=== PATIENT | female | born 1950 | race Two or more races ===

== ENCOUNTER 2023-09-08 15:45 | Inpatient (IN) | payer OTHER ==
[~2023-09-08] VITALS: Ht 157.5 cm; Wt 72.6 kg
[2023-09-08 16:14] LABS: HEMATOCRIT 34.2 % (36.0-45.00); HEMOGLOBIN 11.2 g/dL (12.0-15.00); MEAN CORPUSCULAR HEMOGLOBIN 28.5 pg (27.00-32.0); MEAN CORPUSCULAR HGB CONC 32.8 g/dl (32.0-36.0); PLATELET COUNT 391 K/uL (150-450); RED BLOOD COUNT 3.94 M/uL (4.00-6.00); RED CELL DISTRIBUTION WIDTH 14.1 % (11.5-14.5)
[2023-09-08 16:44] LABS: ALBUMIN 3.4 gm/dL (3.4-5.0); BILIRUBIN TOTAL 0.41 mg/dL (0.3-1.2); CALCIUM 8.6 mg/dL (8.5-10.1); CREATININE SERUM 0.84 mg/dL (0.55-1.02); GFR 66.1; POTASSIUM 4.19 mEq/L (3.5-5.1); TOTAL PROTEIN 7.4 gm/dL (6.4-8.2)
[2023-09-09 16:38] LABS: URINE APPEARANCE Clear; URINE BILIRRUBIN Negative (NEGATIVE); URINE BLOOD Trace; URINE COLOR Yellow; URINE GLUCOSE Negative (NEGATIVE); URINE LEUKOCYTE Small; URINE NITRATE Negative; URINE PROTEIN Negative (NEGATIVE); URINE UROBILINOGEN 0.2 E.U./dl
[2023-09-09 16:39] LABS: URINE BACTERIA 54.1 uL (0.0-1933); URINE EPITHELIAL CELLS 10.6 uL (0.0-38.8); URINE RBC 3.3 uL (0.0-20.8); URINE WBC 36.4 uL (0.0-23.2)
[2023-09-10 07:22] LABS: HEMATOCRIT 31.5 % (36.0-45.00); HEMOGLOBIN 10.5 g/dL (12.0-15.00); MEAN CELL VOLUME 86.6 fL (80.00-100.00); MEAN CORPUSCULAR HEMOGLOBIN 28.8 pg (27.00-32.0); MEAN CORPUSCULAR HGB CONC 33.3 g/dl (32.0-36.0); PLATELET COUNT 325 K/uL (150-450); RED BLOOD COUNT 3.64 M/uL (4.00-6.00); RED CELL DISTRIBUTION WIDTH 13.6 % (11.5-14.5)
[2023-09-10 08:07] LABS: ALBUMIN 2.7 gm/dL (3.4-5.0); BILIRUBIN TOTAL 0.61 mg/dL (0.3-1.2); CALCIUM 8.1 mg/dL (8.5-10.1); CREATININE SERUM 0.7 mg/dL (0.55-1.02); GFR 81.57; GLOBULINA 3.5 G/DL (2.4-3.5); MAGNESIUM 2.3 mg/dL (1.8-2.4); PHOSPHOROUS 3.1 mg/dL (2.5-4.9); POTASSIUM 4.3 mEq/L (3.5-5.1); TOTAL PROTEIN 6.2 gm/dL (6.4-8.2)
[2023-09-10 09:09] LABS: CA 125 46.5 U/mL (0.0-38.1)
[2023-09-10 18:10] LABS: CALCIUM 8.4 mg/dL (8.5-10.1); CHOL HDL RATIO 2.8 (0-5.0); CREATININE SERUM 0.61 mg/dL (0.55-1.02); GFR 95.61; POTASSIUM 4.56 mEq/L (3.5-5.1)
[2023-09-12 07:45] LABS: PH,URINE 6.5 (5.0-8.0); URINE APPEARANCE Clear; URINE BILIRRUBIN Negative (NEGATIVE); URINE BLOOD Negative; URINE COLOR Yellow; URINE GLUCOSE Negative (NEGATIVE); URINE LEUKOCYTE Trace; URINE NITRATE Negative; URINE PROTEIN Negative (NEGATIVE); URINE UROBILINOGEN 0.2 E.U./dl
[2023-09-12 07:49] LABS: URINE BACTERIA 8.8 uL (0.0-1933); URINE EPITHELIAL CELLS 5.7 uL (0.0-38.8); URINE WBC 6.9 uL (0.0-23.2)
[2023-09-12 08:07] LABS: URINE RBC 1.2 uL (0.0-20.8)
[2023-09-13 08:34] LABS: ALBUMIN 2.4 gm/dL (3.4-5.0); BILIRUBIN TOTAL 0.38 mg/dL (0.3-1.2); CALCIUM 7.8 mg/dL (8.5-10.1); CREATININE SERUM 0.53 mg/dL (0.55-1.02); GFR 112.46; GLOBULINA 3.2 G/DL (2.4-3.5); HEMATOCRIT 29.5 % (36.0-45.00); HEMOGLOBIN 10.2 g/dL (12.0-15.00); MAGNESIUM 2.1 mg/dL (1.8-2.4); MEAN CELL VOLUME 85.2 fL (80.00-100.00); MEAN CORPUSCULAR HEMOGLOBIN 29.4 pg (27.00-32.0); MEAN CORPUSCULAR HGB CONC 34.6 g/dl (32.0-36.0); PHOSPHOROUS 3.7 mg/dL (2.5-4.9); PLATELET COUNT 294 K/uL (150-450); POTASSIUM 5.2 mEq/L (3.5-5.1); RED BLOOD COUNT 3.47 M/uL (4.00-6.00); RED CELL DISTRIBUTION WIDTH 13.9 % (11.5-14.5); TOTAL PROTEIN 5.6 gm/dL (6.4-8.2)
[2023-09-15 07:36] LABS: HEMATOCRIT 31.2 % (36.0-45.00); HEMOGLOBIN 10.4 g/dL (12.0-15.00); MEAN CELL VOLUME 86.6 fL (80.00-100.00); MEAN CORPUSCULAR HEMOGLOBIN 28.9 pg (27.00-32.0); MEAN CORPUSCULAR HGB CONC 33.3 g/dl (32.0-36.0); PLATELET COUNT 289 K/uL (150-450); RED BLOOD COUNT 3.61 M/uL (4.00-6.00); RED CELL DISTRIBUTION WIDTH 13.8 % (11.5-14.5)
[2023-09-15 07:37] LABS: ALBUMIN 2.8 gm/dL (3.4-5.0); ALKALINE PHOSPHATASE 64 U/L (50-136); ALT/SGPT 50 U/L (12-78); ANION GAP 10 (10.0-20.0); AST/SGOT 44 U/L (15-37); BILIRUBIN TOTAL 0.37 mg/dL (0.3-1.2); BILIRUBIN,CONJUGATED < 0.10 mg/dL (0.0-0.2); BILIRUBIN,UNCONJUGATED 0.27 mg/dL (0.0-0.6); BLOOD UREA NITROGEN 16 mg/dL (7-18); BUN CREA RATIO 29 (7.0-25.0); CALCIUM 8.5 mg/dL (8.5-10.1); CARBON DIOXIDE 25 mEq/L (21-32); CHLORIDE 110 mmol/L (98-107); CHOL HDL RATIO 2.2 (0-5.0); CHOLESTEROL 71 mg/dL (0-200); CREATININE SERUM 0.55 mg/dL (0.55-1.02); GFR 107.75; GLOBULINA 3.4 G/DL (2.4-3.5); GLUCOSE FASTING 103 mg/dL (65-100); HDL 32 mg/dl (40-60); LDL 18 mg/dl (0-130); OSMOLALITY SERUM 281 MOSM/KG (275-295); POTASSIUM 5.32 mEq/L (3.5-5.1); SODIUM 140 mmol/L (136-145); TOTAL PROTEIN 6.2 gm/dL (6.4-8.2); TRIGLYCERIDES 103 mg/dL (0-150); VLDL 20 (0-39)
[2023-09-15 07:58] LABS: INR 1.11; PARTIAL THROMBOPLASTIN TIME 29.6 SECONDS (22.0-34.0); PROTHROMBIN TIME 11.6 SECONDS (9.0-11.5)
[2023-09-17] MEDS ORDERED: LACTULOSE10 GM/152 PO (17:13)
[2023-09-17] MEDS ORDERED: CIPRO500 MG PO (17:14)
[2023-09-17] MEDS ORDERED: METRONIDAZOLE500 MG PO (17:18)
== END 2023-09-17 18:40 | disposition home or self-care (01) | DRG 815 ==
LOC: MEDJ 15:45
PROVIDERS: Internal Medicine; Internal Medicine Infectious Disease; ADMIT Internal Medicine; ATTEND Internal Medicine
PROC: BW21YZZ Computerized Tomography (CT Scan) of Abdomen and Pelvis using Other Contrast (ICD-10-PCS; 2023-09-08)
PROC: BF37ZZZ Magnetic Resonance Imaging (MRI) of Pancreas (ICD-10-PCS; 2023-09-08)
PROC: 0W9G30Z Drainage of Peritoneal Cavity with Drainage Device, Percutaneous Approach (ICD-10-PCS; principal; 2023-09-10)
PROC: 02HV33Z Insertion of Infusion Device into Superior Vena Cava, Percutaneous Approach (ICD-10-PCS; 2023-09-11)
PROC: BW21YZZ Computerized Tomography (CT Scan) of Abdomen and Pelvis using Other Contrast (ICD-10-PCS; 2023-09-14)
DX: D73.3 Abscess of spleen (principal); K57.32 Diverticulitis of large intestine without perforation or abscess without bleeding; N39.0 Urinary tract infection, site not specified; K80.20 Calculus of gallbladder without cholecystitis without obstruction; I10 Essential (primary) hypertension; E78.5 Hyperlipidemia, unspecified
CPT/HCPCS: 240

== ENCOUNTER 2023-09-27 15:16 | Emergency (ER) | payer OTHER ==
[~2023-09-27] VITALS: Ht 154.9 cm; Wt 70.3 kg
[~2023-09-27 15:16] MED LIST: CIPRO500 MG PO; LACTULOSE10 GM/152 PO; METRONIDAZOLE500 MG PO
[2023-09-27] MEDS ORDERED: ATORVASTATIN CA20 MG PO (15:46)
[2023-09-27] MEDS ORDERED: LISINOPRIL20 MG PO (15:47)
[2023-09-27 15:51] LABS: HEMATOCRIT 36.5 % (36.0-45.00); HEMOGLOBIN 11.9 g/dL (12.0-15.00); MEAN CELL VOLUME 86.9 fL (80.00-100.00); MEAN CORPUSCULAR HEMOGLOBIN 28.4 pg (27.00-32.0); MEAN CORPUSCULAR HGB CONC 32.7 g/dl (32.0-36.0); PLATELET COUNT 399 K/uL (150-450); RED CELL DISTRIBUTION WIDTH 15.3 % (11.5-14.5)
[2023-09-27 15:52] LABS: ABG PH 7.448 (7.35-7.45); ABG PO2 84.8 mmHg (80-100); ABG pCO2 32.6 mmHg (35-45); BICARBONATE 22.1 mmol/l (23-25); SaO2 96.8 %; Tco2 23.1 mmol/l
[2023-09-27 15:53] LABS: allen test SATISFACTORY; o2 21 %; puncture site RADIAL LEFT
[2023-09-27 16:22] LABS: INR 1.02; PARTIAL THROMBOPLASTIN TIME 26.7 SECONDS (22.0-34.0); PROTHROMBIN TIME 10.7 SECONDS (9.0-11.5)
[2023-09-27 16:27] LABS: ALBUMIN 3.5 gm/dL (3.4-5.0); BILIRUBIN TOTAL 0.32 mg/dL (0.3-1.2); CALCIUM 9.1 mg/dL (8.5-10.1); CREATININE SERUM 0.93 mg/dL (0.55-1.02); GFR 58.77; GLOBULINA 4.7 G/DL (2.4-3.5); POTASSIUM 4.24 mEq/L (3.5-5.1); TOTAL PROTEIN 8.2 gm/dL (6.4-8.2)
[2023-09-27 18:04] LABS: PH,URINE 6.5 (5.0-8.0); URINE APPEARANCE Clear; URINE BILIRRUBIN Negative (NEGATIVE); URINE BLOOD Negative; URINE COLOR Yellow; URINE GLUCOSE Negative (NEGATIVE); URINE LEUKOCYTE Small; URINE NITRATE Negative; URINE PROTEIN Negative (NEGATIVE); URINE UROBILINOGEN 0.2 E.U./dl
[2023-09-27 18:09] LABS: URINE BACTERIA 31.4 uL (0.0-1933); URINE EPITHELIAL CELLS 6.1 uL (0.0-38.8); URINE WBC 32.5 uL (0.0-23.2)
[2023-09-27 18:22] LABS: URINE RBC 1.7 uL (0.0-20.8)
== END 2023-09-27 23:50 | disposition home or self-care (01) ==
LOC: ER 15:16
PROVIDERS: General Practice
DX: I49.5 Sick sinus syndrome (principal); I10 Essential (primary) hypertension; E78.00 Pure hypercholesterolemia, unspecified; R00.2 Palpitations; Z20.822 Contact with and (suspected) exposure to COVID-19
CPT/HCPCS: 36415; 71045; 82803; 93005; 96365; 96366; 99284; J7030

== ENCOUNTER 2024-05-14 05:35 | Day surgery (SDC) | payer OTHER ==
[2024-05-13 09:10] LABS: HEMATOCRIT 38.5 % (36.0-45.00); HEMOGLOBIN 13.2 g/dL (12.0-15.00); MEAN CORPUSCULAR HEMOGLOBIN 29.9 pg (27.00-32.0); MEAN CORPUSCULAR HGB CONC 34.4 g/dl (32.0-36.0); PLATELET COUNT 317 K/uL (150-450); RED BLOOD COUNT 4.42 M/uL (4.00-6.00); RED CELL DISTRIBUTION WIDTH 14.2 % (11.5-14.5)
[2024-05-13 10:00] LABS: CALCIUM 9.6 mg/dL (8.5-10.1); CREATININE SERUM 0.9 mg/dL (0.55-1.02); GFR 61.04; POTASSIUM 5.26 mEq/L (3.5-5.1)
[2024-05-13 10:09] LABS: INR < 0.93; PROTHROMBIN TIME 9.8 SECONDS (9.0-11.5)
[~2024-05-14] VITALS: Ht 157.5 cm; Wt 70.3 kg
[~2024-05-14 05:35] MED LIST changes: +ATORVASTATIN CA20 MG PO; +LISINOPRIL20 MG PO; +PROTONIX20 MG PO
[2024-05-14] MEDS ORDERED: SUGAMMADEX SODIUM 200 MG/2 ML VIAL IV ONE (09:15)
== END 2024-05-14 11:45 | disposition home or self-care (01) ==
LOC: AMB-ENDOS 05:35
PROVIDERS: ATTEND Internal Medicine Gastroenterology
DX: D37.6 Neoplasm of uncertain behavior of liver, gallbladder and bile ducts (principal); K86.1 Other chronic pancreatitis; K86.2 Cyst of pancreas; I10 Essential (primary) hypertension; K57.90 Diverticulosis of intestine, part unspecified, without perforation or abscess without bleeding; E78.5 Hyperlipidemia, unspecified

== ENCOUNTER 2024-07-10 06:55 | Inpatient (IN) | payer OTHER ==
[~2024-07-10] VITALS: Ht 154.9 cm; Wt 69.4 kg
[2024-07-10] MEDS ORDERED: NORVASC5 MG (07:08)
[2024-07-10] MEDS ORDERED: BARIUM SULFATE 450 ML ORAL.SUSP PO ONE (09:44)
[2024-07-10 09:57] LABS: HEMATOCRIT 34.8 % (36.0-45.00); HEMOGLOBIN 11.7 g/dL (12.0-15.00); MEAN CELL VOLUME 90.6 fL (80.00-100.00); MEAN CORPUSCULAR HEMOGLOBIN 30.6 pg (27.00-32.0); MEAN CORPUSCULAR HGB CONC 33.7 g/dl (32.0-36.0); PLATELET COUNT 378 K/uL (150-450); RED BLOOD COUNT 3.84 M/uL (4.00-6.00); RED CELL DISTRIBUTION WIDTH 15.5 % (11.5-14.5)
[2024-07-10 10:01] LABS: URINE APPEARANCE Clear; URINE BILIRRUBIN Moderate (NEGATIVE); URINE BLOOD Negative; URINE COLOR Dark Yellow; URINE KETONE Negative (NEGATIVE); URINE LEUKOCYTE Negative; URINE NITRATE Negative; URINE PROTEIN Negative (NEGATIVE); URINE UROBILINOGEN 0.2 E.U./dl
[2024-07-10 10:07] LABS: URINE EPITHELIAL CELLS 3.2 uL (0.0-38.8); URINE RBC 2.1 uL (0.0-20.8)
[2024-07-10 10:13] LABS: INR 1.01; PARTIAL THROMBOPLASTIN TIME 22.2 SECONDS (22.0-34.0)
[2024-07-10 10:17] LABS: URINE BACTERIA 3.7 uL (0.0-1933); URINE GLUCOSE 100 MG/DL (NEGATIVE); URINE WBC 0.9 uL (0.0-23.2)
[2024-07-10 10:26] LABS: ALBUMIN 3.5 gm/dL (3.4-5.0); CALCIUM 9.3 mg/dL (8.5-10.1); CREATININE SERUM 0.84 mg/dL (0.55-1.02); GFR 65.92; GLOBULINA 3.8 G/DL (2.4-3.5); POTASSIUM 4.3 mEq/L (3.5-5.1); TOTAL PROTEIN 7.3 gm/dL (6.4-8.2)
[2024-07-10 10:38] LABS: BILIRUBIN TOTAL 13.87 mg/dL (0.3-1.2); BILIRUBIN,CONJUGATED 10.56 mg/dL (0.0-0.2); BILIRUBIN,UNCONJUGATED 3.31 mg/dL (0.0-0.6)
[2024-07-10] MEDS ORDERED: FAMOTIDINE/PF 20 MG/2 ML VIAL ONE ×2 (16:36→16:47)
[2024-07-10] MEDS ORDERED: FAMOTIDINE/PF 20 MG/2 ML VIAL IV PUSH ONE (16:45)
[2024-07-10] MEDS ORDERED: 0.9 % SODIUM CHLORIDE 1,000 ML IV SCH (17:45)
[2024-07-10] MEDS ORDERED: FAMOTIDINE/PF 20 MG in 0.9 % SODIUM CHLORIDE 8 ML IV PUSH SCH (17:46)
[2024-07-10] MEDS ORDERED: PIPERACILLIN/TAZOBACTAM SODIUM 3.375 GM in DEXTROSE 5 % IN WATER 100 ML IV SCH (18:00)
[2024-07-10] MEDS ORDERED: ONDANSETRON HCL 4 MG in 0.9 % SODIUM CHLORIDE 50 ML IV PRN (18:00)
[2024-07-10] MEDS ORDERED: PIPERACILLIN/TAZOBACTAM SODIUM 3.375 GM VIAL IV ONE (18:11)
[2024-07-11] MEDS ORDERED: AMLODIPINE BESYLATE 5 MG TABLET PO SCH (09:00)
[2024-07-11] MEDS ORDERED: ENOXAPARIN SODIUM 40 MG/0.4 ML SYRINGE SUBCUTANEO SCH (09:00)
[2024-07-11 12:36] LABS: HEMATOCRIT 36.4 % (36.0-45.00); HEMOGLOBIN 12.2 g/dL (12.0-15.00); MEAN CELL VOLUME 90.4 fL (80.00-100.00); MEAN CORPUSCULAR HEMOGLOBIN 30.2 pg (27.00-32.0); MEAN CORPUSCULAR HGB CONC 33.4 g/dl (32.0-36.0); PLATELET COUNT 366 K/uL (150-450); RED BLOOD COUNT 4.03 M/uL (4.00-6.00); RED CELL DISTRIBUTION WIDTH 15.6 % (11.5-14.5)
[2024-07-11 13:53] LABS: ALBUMIN 2.8 gm/dL (3.4-5.0); CALCIUM 8.3 mg/dL (8.5-10.1); CREATININE SERUM 0.81 mg/dL (0.55-1.02); GFR 68.75; GLOBULINA 3.3 G/DL (2.4-3.5); MAGNESIUM 2.3 mg/dL (1.8-2.4); PHOSPHOROUS 2.7 mg/dL (2.5-4.9); POTASSIUM 4.1 mEq/L (3.5-5.1); TOTAL PROTEIN 6.1 gm/dL (6.4-8.2)
[2024-07-11 14:15] LABS: BILIRUBIN TOTAL 15.53 mg/dL (0.3-1.2)
[2024-07-12 07:54] LABS: HEMATOCRIT 32.5 % (36.0-45.00); HEMOGLOBIN 11.1 g/dL (12.0-15.00); MEAN CELL VOLUME 88.5 fL (80.00-100.00); MEAN CORPUSCULAR HEMOGLOBIN 30.2 pg (27.00-32.0); MEAN CORPUSCULAR HGB CONC 34.1 g/dl (32.0-36.0); PLATELET COUNT 338 K/uL (150-450); RED BLOOD COUNT 3.68 M/uL (4.00-6.00); RED CELL DISTRIBUTION WIDTH 16.2 % (11.5-14.5)
[2024-07-12] MEDS ORDERED: LORazepam 2 MG/ML VIAL IV ONE (08:15)
[2024-07-12] MEDS ORDERED: LORazepam 2 MG/ML VIAL ONE (08:18)
[2024-07-12 09:10] LABS: ALBUMIN 2.7 gm/dL (3.4-5.0); CALCIUM 7.7 mg/dL (8.5-10.1); CREATININE SERUM 0.8 mg/dL (0.55-1.02); GFR 69.74; GLOBULINA 3.1 G/DL (2.4-3.5); MAGNESIUM 2.1 mg/dL (1.8-2.4); PHOSPHOROUS 2.6 mg/dL (2.5-4.9); POTASSIUM 4.57 mEq/L (3.5-5.1); TOTAL PROTEIN 5.8 gm/dL (6.4-8.2)
[2024-07-12 09:38] LABS: BILIRUBIN TOTAL 17.97 mg/dL (0.3-1.2)
[2024-07-13] MEDS ORDERED: DEXTROSE 5%-WATER 100ML IV.SOLN ONE (08:16)
[2024-07-13] MEDS ORDERED: FAMOTIDINE/PF 20 MG/2 ML VIAL ONE (08:16)
[2024-07-14 06:52] LABS: ALBUMIN 2.6 gm/dL (3.4-5.0); CALCIUM 8.1 mg/dL (8.5-10.1); CREATININE SERUM 0.78 mg/dL (0.55-1.02); GFR 71.81; GLOBULINA 2.9 G/DL (2.4-3.5); MAGNESIUM 2.3 mg/dL (1.8-2.4); POTASSIUM 3.76 mEq/L (3.5-5.1); TOTAL PROTEIN 5.5 gm/dL (6.4-8.2)
[2024-07-14 07:05] LABS: HEMATOCRIT 30.2 % (36.0-45.00); HEMOGLOBIN 10.7 g/dL (12.0-15.00); MEAN CELL VOLUME 87.1 fL (80.00-100.00); MEAN CORPUSCULAR HEMOGLOBIN 30.8 pg (27.00-32.0); MEAN CORPUSCULAR HGB CONC 35.4 g/dl (32.0-36.0); PLATELET COUNT 320 K/uL (150-450); RED BLOOD COUNT 3.47 M/uL (4.00-6.00); RED CELL DISTRIBUTION WIDTH 15.8 % (11.5-14.5)
[2024-07-14 07:20] LABS: BILIRUBIN,UNCONJUGATED 5.2 mg/dL (0.0-0.6); C-REACTIVE PROTEIN 7.65 MG/DL (0.00-0.29)
[2024-07-14 07:21] LABS: BILIRUBIN,CONJUGATED 15.15 mg/dL (0.0-0.2)
[2024-07-14 07:37] LABS: PHOSPHOROUS 1.9 mg/dL (2.5-4.9)
[2024-07-14 07:38] LABS: BILIRUBIN TOTAL 20.35 mg/dL (0.3-1.2)
[2024-07-14] MEDS ORDERED: FAMOTIDINE/PF 20 MG/2 ML VIAL ONE (09:00)
[2024-07-14] MEDS ORDERED: LISINOPRIL 20 MG TABLET PO SCH (09:00)
[2024-07-14 09:11] LABS: CA 19-9 137 U/mL (0-35)
[2024-07-14] MEDS ORDERED: POTASSIUM PHOS,M-BASIC-D-BASIC 18 MM in 0.9 % SODIUM CHLORIDE 250 ML IV NR (14:30)
[2024-07-15] MEDS ORDERED: FAMOTIDINE/PF 20 MG/2 ML VIAL ONE (08:21)
[2024-07-15] MEDS ORDERED: IOVERSOL 320 MG/ML - 50 ML VIAL IV SCH (12:45)
[2024-07-15] MEDS ORDERED: GLUCAGON 1 MG VIAL IV NR (13:15)
[2024-07-15] MEDS ORDERED: SUGAMMADEX SODIUM 200 MG/2 ML VIAL IV SCH (14:00)
[2024-07-16 12:06] LABS: igg 825 mg/dL (586-1602); igg 1 364 mg/dL (248-810); igg 2 233 mg/dL (130-555); igg 3 36 mg/dL (15-102); igg 4 47 mg/dL (2-96)
[2024-07-17 06:34] LABS: HEMATOCRIT 29.6 % (36.0-45.00); HEMOGLOBIN 10.1 g/dL (12.0-15.00); MEAN CELL VOLUME 89.5 fL (80.00-100.00); MEAN CORPUSCULAR HEMOGLOBIN 30.6 pg (27.00-32.0); MEAN CORPUSCULAR HGB CONC 34.3 g/dl (32.0-36.0); PLATELET COUNT 249 K/uL (150-450); RED BLOOD COUNT 3.31 M/uL (4.00-6.00); RED CELL DISTRIBUTION WIDTH 16.8 % (11.5-14.5)
[2024-07-17 07:48] LABS: ALBUMIN 2.5 gm/dL (3.4-5.0); BILIRUBIN TOTAL 5.71 mg/dL (0.3-1.2); BILIRUBIN,CONJUGATED 4.46 mg/dL (0.0-0.2); BILIRUBIN,UNCONJUGATED 1.25 mg/dL (0.0-0.6); CALCIUM 8.3 mg/dL (8.5-10.1); CREATININE SERUM 0.65 mg/dL (0.55-1.02); GFR 88.62; GLOBULINA 3.1 G/DL (2.4-3.5); POTASSIUM 3.94 mEq/L (3.5-5.1); TOTAL PROTEIN 5.6 gm/dL (6.4-8.2)
[2024-07-17] MEDS ORDERED: LISINOPRIL20 MG PO (16:48)
[2024-07-17] MEDS ORDERED: PANTOPRAZOLE SO40 MG PO ×2 (16:49→16:51)
[2024-07-17] MEDS ORDERED: PANTOPRAZOLE SODIUM 40 MG/VIAL VIAL IV ONE (17:45)
[2024-07-17] MEDS ORDERED: DICYCLOMINE HCL 20 MG TABLET PO ONE (18:30)
== END 2024-07-17 21:40 | disposition home or self-care (01) | DRG 439 ==
LOC: ER 06:56 → MEDI 18:08
PROVIDERS: Emergency Medicine; Internal Medicine; Internal Medicine Gastroenterology; Internal Medicine Infectious Disease; ADMIT Internal Medicine; ATTEND Internal Medicine
PROC: BW21YZZ Computerized Tomography (CT Scan) of Abdomen and Pelvis using Other Contrast (ICD-10-PCS; 2024-07-10)
PROC: BW24ZZZ Computerized Tomography (CT Scan) of Chest and Abdomen (ICD-10-PCS; 2024-07-10)
PROC: BW40ZZZ Ultrasonography of Abdomen (ICD-10-PCS; 2024-07-10)
PROC: BF37ZZZ Magnetic Resonance Imaging (MRI) of Pancreas (ICD-10-PCS; 2024-07-10)
PROC: BW20ZZZ Computerized Tomography (CT Scan) of Abdomen (ICD-10-PCS; 2024-07-12)
PROC: 0F7D8DZ Dilation of Pancreatic Duct with Intraluminal Device, Via Natural or Artificial Opening Endoscopic (ICD-10-PCS; 2024-07-15)
PROC: 0FJD8ZZ Inspection of Pancreatic Duct, Via Natural or Artificial Opening Endoscopic (ICD-10-PCS; principal; 2024-07-15 11:30)
DX: K85.90 Acute pancreatitis without necrosis or infection, unspecified (principal); K86.2 Cyst of pancreas; R17 Unspecified jaundice; R65.10 Systemic inflammatory response syndrome (SIRS) of non-infectious origin without acute organ dysfunction; K85.10 Biliary acute pancreatitis without necrosis or infection; I10 Essential (primary) hypertension; K57.90 Diverticulosis of intestine, part unspecified, without perforation or abscess without bleeding; E78.00 Pure hypercholesterolemia, unspecified; K80.20 Calculus of gallbladder without cholecystitis without obstruction; E80.6 Other disorders of bilirubin metabolism; D01.7 Carcinoma in situ of other specified digestive organs